=== PATIENT | male | born 1965 | race Caucasian/White ===

== ENCOUNTER → 2019-09-11 15:20 | Outpatient (CLI) | payer OTHER, SELFPAY ==
--- NOTE | 2019-09-11 15:27 | XR_ITS ---
PROCEDURE: XR HIP LT 2-3V W/PELVIS CLINICAL INDICATION: left hip pain COMPARISON: XR HIP RT 2-3V W/PELVIS from 09/11/2019 FINDINGS: There are moderate to severe osteoarthritic changes of the left hip with loss of joint space superiorly and mild lateral subluxation of femoral head. An extra calcific density is present along the lateral aspect of the acetabulum and could be related to either an old fracture or displaced os acetabulum. IMPRESSION: Moderate to severe osteoarthritis of the left hip with a 15 mm well-circumscribed bony fragment along the lateral aspect of the hip joint and could be due to an old fracture or displaced os acetabulum Dictated by: Lan Caldwell MD 09/11/2019 16:36 Electronically signed by Lan Caldwell MD in [place] 09/11/2019 16:36
--- NOTE | 2019-09-11 15:27 | XR_ITS ---
PROCEDURE: XR KNEE LT 4V CLINICAL INDICATION: left knee pain COMPARISON: No exams were available for comparison FINDINGS: No fracture or dislocation. No lytic or blastic change. There is normal mineralization. There are hypertrophic changes along the lateral aspect the patella. No other significant anomalies are evident. Other findings:None. IMPRESSION: Degenerative changes patellofemoral joint with bony spurring along the lateral aspect of the patella otherwise negative Dictated by: Lan Caldwell MD 09/11/2019 16:59 Electronically signed by Lan Caldwell MD in [place] 09/11/2019 16:59
--- NOTE | 2019-09-11 15:27 | XR_ITS ---
PROCEDURE: XR KNEE RT 4V CLINICAL INDICATION: Knee pain COMPARISON: No exams were available for comparison FINDINGS: No fracture or dislocation. No lytic or blastic change. There is normal mineralization. There are mild osteoarthritic changes of the patellofemoral joint with smiled spurring along the lateral aspect of the patella. There is slight decrease in the joint space medially. There may be a small suprapatellar effusion. Small bone island is present in the proximal tibia. Other findings:None. IMPRESSION: Mild osteoarthritic changes with possible small knee joint effusion Dictated by: Lan Caldwell MD 09/11/2019 17:01 Electronically signed by Lan Caldwell MD in [place] 09/11/2019 17:01
--- NOTE | 2019-09-11 15:27 | XR_ITS ---
PROCEDURE: XR HIP RT 2-3V W/PELVIS CLINICAL INDICATION: right hip pain COMPARISON: XR HIP LT 2-3V W/PELVIS from 09/11/2019 FINDINGS: There are moderate to severe osteoarthritic changes of the right hip with decrease in joint space medially and osteophyte formation. There is some minimal flattening of the femoral head with per tree branch along the junction of the right femoral head and neck suggesting a CAM deformity which may be seen with femoral acetabular impingement. No acute fracture or dislocation. No lytic or blastic change. There is increased density of the urinary bladder suggesting prior intravenous contrast infusion. Please correlate with clinical findings. A sub chondral cyst is present in the lateral aspect of the acetabular roof. IMPRESSION: Moderate to severe osteoarthritis with possible femoral acetabular impingement Dictated by: Lan Caldwell MD 09/11/2019 17:02 Electronically signed by Lan Caldwell MD in [place] 09/11/2019 17:02
== END ==
PROVIDERS: Visit Provider Orthopaedic Surgery
DX: M25.551 Pain in right hip (principal); M25.552 Pain in left hip; M25.562 Pain in left knee; M25.561 Pain in right knee
CPT/HCPCS: 73502; 73564